=== PATIENT | male | born 1985 | race Caucasian/White ===

== ENCOUNTER 2020-05-20 09:26 | Outpatient (REF) | payer OTHER, SELFPAY ==
[2020-05-20 14:23] LABS: SARS COV2 PCR INHOUSE NEGATIVE (Negative)
== END 2020-05-20 09:27 | disposition home or self-care (01) ==
LOC: HO.LAB 09:26
PROVIDERS: Visit Provider Internal Medicine
DX: Z20.822 Contact with and (suspected) exposure to COVID-19 (principal)
CPT/HCPCS: C9803; U0003

== ENCOUNTER 2020-12-31 11:50 | Emergency (ER) | payer OTHER, BC, SELFPAY ==
--- NOTE | ~2020-12-31 | XR_ITS ---
EXAMINATION: XR CHEST CLINICAL INFORMATION: Fever. Bilateral leg pain for 5 days. COMPARISON: None TECHNIQUE: 2 views of the chest were obtained. FINDINGS: Cardiac silhouette is normal in size. The lungs are well aerated. There is no lobar consolidation. No pleural effusion or pneumothorax. No acute osseous abnormality. XR/XR chest 2V IMPRESSION: No acute pulmonary pathology.
[2020-12-31 12:00] VITALS: BP 116/82; PULSE 110; RESP 18; TEMP 36.5; O2SAT 98; BMI 23.6
--- NOTE | 2020-12-31 13:21 | ED.GENADULT ---
HPI - General Adult General Chief complaint: General Medical Stated complaint: body aches/headache Time Seen by Provider: 12/31/20 12:43 Source: patient Mode of arrival: ambulatory Limitations: no limitations History of Present Illness HPI narrative: 35-year-old male previously healthy here with complaints of feeling unwell since Saturday. Patient tells me that he started to have headache, generalized body aches Saturday. Saturday night had a temperature of 101.6 degrees. Also complaining of a cough, sore throat, joint pain and swelling. No rash, neck pain or stiffness, vomiting, diarrhea, abdominal pain, chest pain or shortness of breath. He did have a fever Saturday through but has not had a fever since. He had 2-COVID test outpatient. Spoke to his primary care doctor yesterday and had outpatient labs done. Patient tells me that he had Lyme testing done yesterday which was negative in addition to some other lab work. No recent travel or sick contact. Receive moderna x2. Sexually active with 1 partner. No concern for STD exposure. No testicular pain, urinary symptoms or penile discharge. Tested negative for HIV in 2016. No history of tick bites but is quite active an outdoors a lot. Related Data Previous Rx's Medication Instructions Recorded doxycycline monohydrate 100 mg 100 mg PO BID #14 cap 12/31/20 capsule Allergies Allergy/AdvReac Type Severity Reaction Status Date / Time No Known Allergies Allergy Unverified 11/05/19 18:10 Review of Systems Review of Systems: Yes all other systems are reviewed and are negative Constitutional: Constitutional: Reports no additional constitutional complaints, Reports body ache(s), Denies chills, Reports fever(s), Reports headache(s) and Denies weakness Eyes: Eyes: Reports no additional eye complaints and Denies change in vision ENT: Reports system reviewed and no additional complaints, except as documented, Denies dizziness, Reports headache(s), Denies nasal congestion, Denies nasal discharge, Denies neck pain and Reports sore throat Cardiovascular: Cardiovascular: Reports no additional cardiovascular complaints, Denies chest pain, Denies leg edema and Denies dyspnea Respiratory: Respiratory: Reports no additional respiratory complaints, Reports cough and Denies dyspnea Gastrointestinal: Gastrointestinal: Reports no additional gastrointestinal complaints, Denies abdominal pain, Denies diarrhea, Denies nausea and Denies vomiting Genitourinary: Genitourinary: Denies urinary incontinence Musculoskeletal: Musculoskeletal: Reports no additional musculoskeletal complaints, Denies back pain, Reports arthralgias, Reports joint swelling, Denies neck pain, Denies numbness and Denies tingling Integumentary/Breasts: Skin/Breast: Reports system reviewed and no additional complaints, except as docu and Denies rash Neurologic: Reports system reviewed and no additional complaints, except as documented, Denies Abnormal speech present, Denies dizziness, Reports headache(s), Denies numbness, Denies tingling and Denies weakness [facility] Past Medical History Attestation statement: The following information was validated with the patient. Source: old records reviewed and nursing notes reviewed Social History Social History Alcohol intake: never Smoked in Last 30 Days: No Use of substances other than those prescribed or required for medical reasons: No Advance Directives: No Advance Directives Information Provided: Yes Physical Exam Vital Signs: Vital Signs: Last Vital Signs Temp 97.7 F 12/31/20 12:00 Pulse 110 H 12/31/20 12:00 Resp 18 12/31/20 12:00 BP 116/82 12/31/20 12:00 Pulse Ox 98 12/31/20 12:00 Body Mass Index 23.6 Const: General: cooperative, healthy appearing, comfortable and no acute distress Orientation/consciousness: patient oriented x3 Limitations: no limitations HENMT: Head: Yes normal to inspection Ears: hearing grossly normal bilaterally and TM's normal bilaterally General nose exam: Normal external nose present Face and sinus: Yes normal facial exam Mouth: Normal oral and palatal mucosa present Throat: Yes posterior oropharynx normal, Yes tonsils normal and Yes uvula midline Eyes: General: appearance normal, both eyes and all related structures Pupils: Equal, round and reactive pupils present Neck: Neck: Yes normal visual inspection, Yes full ROM, Yes no lymphadenopathy and Yes no meningeal signs Chest: Chest palpation & inspection: normal inspection of the chest Resp: Effort & Inspection: normal respiratory effort Auscultation: clear to auscultation bilaterally Cardio: Rate: regular rate Rhythm: regular rhythm Peripheral pulses: Peripheral pulses 2+ throughout GI: Inspection: Yes normal to inspection Palpation (GI): Soft to palpation and nontender Auscultation: normal bowel sounds Back/Spine/Pelvis: Thoracic/Lumbar Spine: thoracic and lumbar spine normal to inspection Skin: General skin exam: no rashes or lesions noted Neuro: General: patient oriented x3, no meningeal signs, no focal motor deficits and normal sensation to monofilament Cranial nerves: Yes Equal, round and reactive pupils present Cognition (Neuro): normal cognition Speech: No Abnormal speech present Gait exam (Neuro): Normal gait present Motor exam (neuro): 5/5 motor strength present throughout Extrem: General: Yes normal to inspection, Yes no pedal edema and Yes no calf tenderness Course Course Course Narrative: 35-year-old male here with complaints of headache, joint pain and swelling, fever up to 101.6, mild sore throat and cough since Saturday evening. Tested twice negative for COVID. Had outpatient labs including Lyme testing yesterday and negative. Continued symptoms. Feels like his lower extremities are very sore and painful making ambulation difficult at times. Will check labs, chest x-ray, UA, COVID screen 1530-labs are unremarkable with the exception of the lymphocytopenia. Chest x-ray, UA and COVID screen are negative. Consider viral cause. Also consider tick-borne illness with myalgias, headache, joint pain and swelling with fever and some lymphocytopenia on the differential. Therefore as tick-borne studies are pending will treat with course of doxycycline for 7 days. Reviewed worrisome signs and symptoms and when to return to the emergency department. Comfortable discharge home. Medical Decision Making Medical Records Medical records reviewed: Yes I reviewed the patient's medical records. Lab Data Lab results reviewed: Yes I reviewed the patient's lab results. Result diagrams: 12/31/20 13:32 12/31/20 13:32 Labs: Lab Results 12/31/20 12/31/20 12/31/20 Range/Units 13:32 13:32 13:32 WBC 9.2 (4.8-10.8) X10*3/uL RBC 3.91 L (4.60-5.80) X10*6/uL Hgb 11.5 L (14.0-18.0) g/dl Hct 35.6 L (42.0-52.0) % MCV 91.0 (80.0-98.0) fL MCH 29.4 (27.0-33.0) pg MCHC 32.3 (31.0-36.0) g/dl RDW 12.2 (11.0-16.0) % Plt Count 200 (160-400) X10*3/uL MPV 9.7 (9.4-12.4) fL Immature Gran % (Auto) 0.2 (0.0-0.4) % Neut % (Auto) 77.5 H (45-73) % Lymph % (Auto) 9.2 L (20-40) % [place] % (Auto) 11.8 H (2-11) % Eos % (Auto) 1.0 (0-4) % Baso % (Auto) 0.3 (0-2) % Lymph # (Auto) 0.8 L (1.2-4.9) X10*3/uL [place] # (Auto) 1.1 (0.1-1.2) X10*3/uL Eos # (Auto) 0.1 (0.0-0.4) X10*3/uL Baso # (Auto) 0.0 (0.0-0.2) X10*3/uL Abs Immat Gran (auto) 0.02 (0.00-0.03) X10*3/uL Absolute Neuts (auto) 7.1 (2.0-8.3) x10*3/uL Absolute Nucleated RBC 0.000 (0.0-0.012) X10*3/uL Nucleated RBC % (auto) 0.0 (0.0-0.2) /100WBC Sodium 143 (135-145) mmol/L Potassium 4.1 (3.3-5.1) mmol/L Chloride 108 (96-108) mmol/L Carbon Dioxide 27 (22-29) mmol/L Anion Gap 12 (12-20) BUN 13 (9-16) mg/dL Creatinine 0.82 (0.5-1.4) mg/dL Estim Creat Clear Calc 128.1 Estimated GFR > 60 Random Glucose 102 (60-115) mg/dL Lactic Acid 0.8 (0.5-2.0) mmol/L Calcium 8.8 (8.4-10.2) mg/dL Magnesium 1.8 (1.6-2.6) mg/dL Total Bilirubin 0.3 (0.0-1.0) mg/dL Direct Bilirubin 0.2 (0.0-0.5) mg/dL AST 13 (5-37) U/L ALT 12 (0-40) U/L Alkaline Phosphatase 49 (39-117) U/L Total Creatine Kinase 57 (38-174) U/L Total Protein 6.8 (6.5-8.0) g/dL Albumin 3.9 (3.5-5.0) g/dL Urine Color Urine Appearance Urine pH (5.0-8.0) Ur Specific [place] (1.005-1.025) Urine Protein (NEG-TRACE) MG/DL Urine Glucose (UA) (NEG) MG/DL Urine Ketones (NEG) MG/DL Urine Blood (NEG) Urine Nitrite (NEG) Ur Leukocyte Esterase (NEG) Influenza Type A (PCR) Influenza Type B (PCR) RSV RNA Qual (PCR) SARS-CoV-2 RNA (RT-PCR) 12/31/20 12/31/20 12/31/20 Range/Units 13:32 13:32 14:38 WBC (4.8-10.8) X10*3/uL RBC (4.60-5.80) X10*6/uL Hgb (14.0-18.0) g/dl Hct (42.0-52.0) % MCV (80.0-98.0) fL MCH (27.0-33.0) pg MCHC (31.0-36.0) g/dl RDW (11.0-16.0) % Plt Count (160-400) X10*3/uL MPV (9.4-12.4) fL Immature Gran % (Auto) (0.0-0.4) % Neut % (Auto) (45-73) % Lymph % (Auto) (20-40) % [place] % (Auto) (2-11) % Eos % (Auto) (0-4) % Baso % (Auto) (0-2) % Lymph # (Auto) (1.2-4.9) X10*3/uL [place] # (Auto) (0.1-1.2) X10*3/uL Eos # (Auto) (0.0-0.4) X10*3/uL Baso # (Auto) (0.0-0.2) X10*3/uL Abs Immat Gran (auto) (0.00-0.03) X10*3/uL Absolute Neuts (auto) (2.0-8.3) x10*3/uL Absolute Nucleated RBC (0.0-0.012) X10*3/uL Nucleated RBC % (auto) (0.0-0.2) /100WBC Sodium (135-145) mmol/L Potassium (3.3-5.1) mmol/L Chloride (96-108) mmol/L Carbon Dioxide (22-29) mmol/L Anion Gap (12-20) BUN (9-16) mg/dL Creatinine (0.5-1.4) mg/dL Estim Creat Clear Calc Estimated GFR Random Glucose (60-115) mg/dL Lactic Acid (0.5-2.0) mmol/L Calcium (8.4-10.2) mg/dL Magnesium (1.6-2.6) mg/dL Total Bilirubin (0.0-1.0) mg/dL Direct Bilirubin (0.0-0.5) mg/dL AST (5-37) U/L ALT (0-40) U/L Alkaline Phosphatase (39-117) U/L Total Creatine Kinase (38-174) U/L Total Protein (6.5-8.0) g/dL Albumin (3.5-5.0) g/dL Urine Color YELLOW Urine Appearance CLEAR Urine pH 6.5 (5.0-8.0) Ur Specific [place] 1.025 (1.005-1.025) Urine Protein TRACE (NEG-TRACE) MG/DL Urine Glucose (UA) NEG (NEG) MG/DL Urine Ketones 5 (NEG) MG/DL Urine Blood NEG (NEG) Urine Nitrite NEG (NEG) Ur Leukocyte Esterase NEG (NEG) Influenza Type A (PCR) Cancelled NEGATIVE Influenza Type B (PCR) Cancelled NEGATIVE RSV RNA Qual (PCR) Cancelled NEGATIVE SARS-CoV-2 RNA (RT-PCR) Cancelled NEGATIVE Imaging Data Chest x-ray: Attestation: I personally reviewed and interpreted this imaging study as follows: Radiologist's impression: EXAMINATION: XR CHEST CLINICAL INFORMATION: Fever. Bilateral leg pain for 5 days. COMPARISON: None TECHNIQUE: 2 views of the chest were obtained. FINDINGS: Cardiac silhouette is normal in size. The lungs are well aerated. There is no lobar consolidation. No pleural effusion or pneumothorax. No acute osseous abnormality. XR/XR chest 2V IMPRESSION: No acute pulmonary pathology. Discharge Plan Discharge Clinical Impression: Febrile illness Patient Disposition: Home, Self-Care Instructions: Fever in Adults (ED) Additional Instructions: Your lab work all looked normal with the exception of your labs for tick-borne illnesses. These do take about 5-7 days to come back. We will call you if you require additional treatment. We are treating you prophylactically for tick-borne illnesses with 7 days of antibiotics. Continue to alternate Motrin and Tylenol Increase fluids, rest Follow-up with your primary care doctor for persistent symptoms Return to the emergency department for worsening symptoms Prescriptions: New doxycycline monohydrate 100 mg capsule 100 mg PO BID Qty: 14 RF: 0 Referrals: Pat Silva MD [Primary Care Provider] - 2 days Stand Alone Forms: Work/School Release Interventions: ED Discharge Assessment Last Done: 12/31/20 15:17 Discharge Date/Time: 12/31/20 15:17
[2020-12-31 13:39] LABS: MANUAL DIFF FLAG NO
[2020-12-31 13:41] LABS: Basophils Percent Auto 0.3 % (0-2); Eosinophils Absolute Auto 0.1 X10*3/uL (0.0-0.4); Hematocrit 35.6 % (42.0-52.0); Hemoglobin 11.5 g/dl (14.0-18.0); Imm Gran Abs Auto 0.02 X10*3/uL (0.00-0.03); Imm Gran Pct Auto 0.2 % (0.0-0.4); Lymphocytes Absolute Auto 0.8 X10*3/uL (1.2-4.9); Lymphocytes Percent Auto 9.2 % (20-40); Mean Corpuscular HGB Conc 32.3 g/dl (31.0-36.0); Mean Corpuscular Hemoglobin 29.4 pg (27.0-33.0); Mean Platelet Volume 9.7 fL (9.4-12.4); Monocytes Absolute Auto 1.1 X10*3/uL (0.1-1.2); Monocytes Percent Auto 11.8 % (2-11); Neutrophils Absolute Auto 7.1 x10*3/uL (2.0-8.3); Neutrophils Percent Auto 77.5 % (45-73); Platelet Count 200 X10*3/uL (160-400); Red Blood Count 3.91 X10*6/uL (4.60-5.80); Red Cell Distribution Width 12.2 % (11.0-16.0); White Blood Count 9.2 X10*3/uL (4.8-10.8)
[2020-12-31 13:53] LABS: Lactic Acid 0.8 mmol/L (0.5-2.0)
[2020-12-31 14:00] LABS: Alanine Aminotransferase 12 U/L (0-40); Albumin Level 3.9 g/dL (3.5-5.0); Alkaline Phosphatase 49 U/L (39-117); Aspartate Amino Transferase 13 U/L (5-37); Bilirubin Direct 0.2 mg/dL (0.0-0.5); Bilirubin Total 0.3 mg/dL (0.0-1.0); Blood Urea Nitrogen 13 mg/dL (9-16); Calcium 8.8 mg/dL (8.4-10.2); Creatinine Clr Calc Pharmacy 128.1; Estimated Glomerular Filt Rate > 60; Glucose Random 102 mg/dL (60-115); Magnesium 1.8 mg/dL (1.6-2.6); Total Protein 6.8 g/dL (6.5-8.0)
[2020-12-31 14:11] LABS: Anion Gap 12 (12-20); Carbon Dioxide 27 mmol/L (22-29); Chloride 108 mmol/L (96-108); Potassium 4.1 mmol/L (3.3-5.1); Sodium 143 mmol/L (135-145)
[2020-12-31 14:39] LABS: Influenza A PCR NEGATIVE (Negative); Influenza B PCR NEGATIVE (Negative); Resp Syncy Virus RNA Qual PCR NEGATIVE (Negative); SARS COV2 PCR INHOUSE NEGATIVE (Negative)
[2020-12-31 14:53] LABS: Appearance Urine CLEAR; Color Urine YELLOW; Glucose Urine UA NEG (NEG); Leukocyte Esterase Urine NEG (NEG); Nitrite Urine NEG (NEG); PH 6.5 (5.0-8.0); Specific Gravity - Urine 1.025 (1.005-1.025); Urine Blood NEG (NEG); Urine Ketones 5 MG/DL (NEG); Urine Protein TRACE MG/DL (NEG-TRACE)
[2021-01-02 13:37] LABS: Lyme Abs Screen <0.90 index
[2021-01-05 04:21] LABS: A. Phagocytophilum Ab IgG <1:64 (<1:64); A. Phagocytophilum Ab IgM <1:20 (<1:20); E. Chaffeensis Ab IgG <1:64 (<1:64); E. Chaffeensis Ab IgM <1:20 (<1:20)
[2021-01-05 11:27] LABS: Babesia IgG <1:64 titer (<1:64); Babesia IgM <1:20 titer (<1:20)
== END 2020-12-31 15:17 | disposition home or self-care (01) ==
PROVIDERS: Nurse Practitioner Family; Emergency Provider Emergency Medicine Emergency Medical Services; PCP Internal Medicine
DX: M79.10 Myalgia, unspecified site (principal); R51.9 Headache, unspecified; Z79.899 Other long term (current) drug therapy; Z20.822 Contact with and (suspected) exposure to COVID-19
CPT/HCPCS: 0241U; 36415; 71046; 80048; 80076; 81003; 82550; 83605; 83735; 85025; 86617; 86618; 86666; 86753; 87040; 99283; 99284

== ENCOUNTER 2020-12-31 21:45 | Emergency (ER) | payer OTHER, SELFPAY ==
--- NOTE | 2020-12-31 | ECG_ITS ---
Test Reason : CHEST PAIN Blood Pressure : / mmHG Vent. Rate : 110 BPM Atrial Rate : 110 BPM P-R Int : 128 ms QRS Dur : 090 ms QT Int : 288 ms P-R-T Axes : 042 071 048 degrees QTc Int : 389 ms Sinus tachycardia Otherwise normal ECG No previous ECGs available Referred By: Generic ED Physician Electronically Signed By:ERIKA LIVE MD
[2020-12-31 21:49] VITALS: BP 133/88; PULSE 130; RESP 18; TEMP 38.3; O2SAT 99; BMI 23.6
--- NOTE | 2020-12-31 22:20 | ED.GENADULT ---
HPI - General Adult General Chief complaint: General Medical Stated complaint: Fever/Headache Time Seen by Provider: 12/31/20 22:20 Source: patient Mode of arrival: ambulatory Limitations: no limitations History of Present Illness HPI narrative: Patient 35 years old with no significant past medical history been having headache body aches ankle joint pain and fever ranging from 101-140 degrees for last 6 days also had some slight dry cough no neck pain or stiffness no vomiting or diarrhea was seen by his PCP yesterday workup was negative including Lyme titer had 2 times COVID testing as outpatient were negative patient was seen earlier today her workup was negative patient was empirically started on doxycycline for possible tick-borne disease although pt never had any tick bite no rash noticed patient took doxycycline now not feeling better still has a fever and more headache Related Data Previous Rx's Medication Instructions Recorded doxycycline monohydrate 100 mg 100 mg PO BID #14 cap 12/31/20 capsule Allergies Allergy/AdvReac Type Severity Reaction Status Date / Time No Known Allergies Allergy Unverified 11/05/19 18:10 Review of Systems Review of Systems: Constitutional : No Weight loss, + Fever, No Chills ENT/Mouth : No sore throat, No Rhinorrhea Eyes: No Eye Pain, No Swelling Cardiovascular : No Chest Pain, no palpitations Respiratory : No Cough, No Sputum, no shortness of breath Gastrointestinal : no Nausea, No Vomiting, No Diarrhea, No abdominal Pain, no black stools Genitourinary : No Dysuria, No Urinary Frequency Musculoskeletal : +joint pain, +Myalgias, + Joint Swelling (ankle) Skin : No Skin Lesions, No rash Neuro : No Weakness, No Numbness, No Dizziness, No Headache Psych : No Anxiety/Panic, No Depression Heme/Lymph: No Bruising, No Lymphadenopathy Endocrine : No Polyuria, No Polydipsia All other systems reviewed and are negative [facility] Social History Social History Alcohol intake: unknown Patient Tobacco Use Status: Tobacco use Unknown Use of substances other than those prescribed or required for medical reasons: Unknown Advance Directives: No Advance Directives Information Provided: No Physical Exam Vital Signs: Vital Signs: Last Vital Signs Temp 99 F 01/01/21 00:40 Pulse 81 01/01/21 00:40 Resp 14 01/01/21 00:40 BP 103/61 01/01/21 00:40 Pulse Ox 97 01/01/21 00:40 Body Mass Index 23.6 Appearance: Alert. Oriented X3. No acute distress. Eyes: PERRLA, No Nystagmus ENT: Pharynx normal. Oral Mucosa moist Neck: Normal inspection. Neck supple. CVS: Normal heart rate and rhythm. Pulses normal. Respiratory: No respiratory distress. Equal air entry bilateral, no wheezing/rales/rhonchi Abdomen: Soft and nontender. Bowel sounds are present, no mass palpable, no CVA tenderness Skin: Skin warm and dry. Normal skin color. Normal skin turgor. Extremities: No lower extremity edema. No calf tenderness, slight swelling of bilateral ankle joint and tenderness Neuro: Oriented X 3. No motor deficit. No sensory deficit.No cerebellar signs , cranial nerves II-XII intact Course Reevaluation(s) Reevaluation #1: Patient with fever headache of unknown origin CSF negative for aseptic meningitis a slightly elevated CRP and sed rate likely tick-borne disease causing the fever Ehrlichia Anaplasma antibody panel is pending advised patient to continue doxycycline and follow with PCP Time: 01:51 Procedures Lumbar Puncture Time Out Performed: Yes Patient Position: upright Skin Prep: Povidone-Iodine 1% Local Anesthetic: lidocaine 2% Amount of anesthesia used (mL): 2 Spinal Needle Gauge: 22G Interspace Used: L4-L5 Opening Pressure (cmH20): 27 Fluid Initially Obtained: clear Complications: none Medical Decision Making MDM Narrative Medical decision making narrative: Etiology of fever and headaches in joint pain is not very clear workup with progress will check for rheumatoid factor CRP sed rate will do spinal tap to rule out viral meningitis as a cause of headache Lab Data Lab results reviewed: Yes I reviewed the patient's lab results. Labs: Lab Results 12/31/20 12/31/20 01/01/21 Range/Units 23:45 23:45 00:34 ESR 34 H (0-15) MM/HR C-Reactive Protein 4.35 H (< or = 0.50) mg/dL CSF Tube Number 2 CSF Appearance (b) Clear, Colorless CSF Glucose 78 mg/dL CSF Total Protein 29.9 (15-45) mg/dL Rheumatoid Factor < 15.0 (<15.0) IU/mL Discharge Plan Discharge Clinical Impression: Fever Qualifiers: Fever type: unspecified Qualified Code(s): R50.9 - Fever, unspecified Patient Disposition: Home, Self-Care Instructions: Fever in Adults (ED) Additional Instructions: Likely have tick-borne disease unspecified Continue doxycycline and follow with PCP Prescriptions: No Action doxycycline monohydrate 100 mg capsule 100 mg PO BID Qty: 14 RF: 0
[2020-12-31] MEDS: Ketorolac Tromethamine 15 MG/ML VIAL 30 MG IVPUSH (23:47)
[2020-12-31] MEDS: 0.9 % Sodium Chloride 1,000 ML 999 ML IVCONT (23:48)
[2021-01-01 00:27] LABS: C Reactive Protein 4.35 mg/dL (< or = 0.50); Rheumatoid Factor < 15.0 IU/mL (<15.0)
[2021-01-01 00:37] LABS: Erythrocyte Sedimentation Rate 34 MM/HR (0-15)
[2021-01-01 00:40] VITALS: BP 103/61; PULSE 81; RESP 14; TEMP 37.2; O2SAT 97
[2021-01-01 01:00] LABS: CSF Appearance Clear, Colorless; CSF Tube # 2
[2021-01-01 01:23] LABS: Glucose CSF 78 mg/dL; Total Protein CSF 29.9 mg/dL (15-45)
[2021-01-01 08:50] LABS: CSF Tube # 4; CSF Volume 1.8 ML; Color CSF COLORLESS; Red Blood Cell CSF 12 MM*3; White Blood Cell CSF 5 MM*3
[2021-01-01 08:51] LABS: CSF Monos 10 %; Neutrophils CSF 90 %
[2021-01-01 08:58] LABS: Appearance CSF CLEAR
[2021-01-02 16:51] LABS: Anti Nuclear Antibody Screen NEGATIVE (NEGATIVE)
[2021-01-02 18:05] LABS: Lyme (B. burgdorferi) PCR NOT DETECTED (NOT DETECTED)
[2021-01-03 22:57] LABS: HSV 1 DNA, CSF Not Detected (Not Detected); HSV 2 DNA, CSF Not Detected (Not Detected); Specimen Source CSF
== END 2021-01-01 02:28 | disposition home or self-care (01) ==
PROVIDERS: Emergency Provider Internal Medicine; PCP Internal Medicine
DX: R50.9 Fever, unspecified (principal); R51.9 Headache, unspecified; R07.9 Chest pain, unspecified; M79.10 Myalgia, unspecified site; Z20.822 Contact with and (suspected) exposure to COVID-19; Z79.899 Other long term (current) drug therapy
CPT/HCPCS: 36415; 62270; 82945; 84157; 85652; 86038; 86039; 86140; 86431; 87015; 87070; 87205; 87476; 87529; 89051; 93005; 96361; 96374; 99284; 99285; J1885

== ENCOUNTER 2021-01-03 17:44 | Emergency (ER) | payer OTHER, SELFPAY ==
[2021-01-03 18:14] VITALS: BP 139/97; PULSE 94; RESP 18; TEMP 36.3; O2SAT 98; BMI 23.6
--- NOTE | 2021-01-03 19:56 | ED.GENADULT ---
HPI - General Adult General Chief complaint: General Medical <Braulio Lezama MD - Last Filed: 01/03/21 21:14> Stated complaint: headache, fever ankle pain <Braulio Lezama MD - Last Filed: 01/03/21 21:14> Time Seen by Provider: 01/03/21 19:32 <Braulio Lezama MD - Last Filed: 01/03/21 21:14> Source: patient and old records reviewed <Braulio Lezama MD - Last Filed: 01/03/21 21:14> Limitations: no limitations <Braulio Lezama MD - Last Filed: 01/03/21 21:14> History of Present Illness HPI narrative: Patient presents with approximately 10 days worth of fevers chills headache, body aches. He has also been having joint pain and swelling. He has no history of similar issues. No recent travels No sick contacts No cough or respiratory symptoms. He was seen here twice for the symptoms because they were getting worse and had a temperature of up to 104? F. Get a full workup including lumbar puncture which was unrevealing so far. He had a total of 5 white cells with so far no growth. Recent Lyme titers were negative. 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 His symptoms continue and his T-max yesterday was 102? F. He saw his PCP today who recommended to come to the emergency department with concerns for dehydration and continued symptoms. <Braulio Lezama MD - Last Filed: 01/03/21 21:14> Related Data Home medications: Previous Rx's Medication Instructions Recorded doxycycline monohydrate 100 mg 100 mg PO BID #14 cap 12/31/20 capsule [id number]-umacdpuwqwuot-dafblgcl 1 cap PO TID PRN #5 cap 01/04/21 50 mg-300 mg-40 mg capsule (Fioricet) prednisone 20 mg tablet 40 mg PO DAILY 4 Days #8 tab 01/04/21 <Braulio Lezama MD - Last Filed: 01/03/21 21:14> Allergies/adverse reactions: Allergies Allergy/AdvReac Type Severity Reaction Status Date / Time No Known Allergies Allergy Unverified 11/05/19 18:10 <Braulio Lezama MD - Last Filed: 01/03/21 21:14> Review of Systems Constitutional: Comments: Patient with ongoing fevers chills and body aches <Braulio Lezama MD - Last Filed: 01/03/21 21:14> ENT: Comments: No rhinorrhea <Braulio Lezama MD - Last Filed: 01/03/21 21:14> Cardiovascular: Comments: No chest pain <Braulio Lezama MD - Last Filed: 01/03/21 21:14> Respiratory: Comments: No cough, sputum, shortness of breath <Braulio Lezama MD - Last Filed: 01/03/21 21:14> Gastrointestinal: Comments: No nausea vomiting or diarrhea. <Braulio Lezama MD - Last Filed: 01/03/21 21:14> Musculoskeletal: Comments: Diffuse arthralgias with joint swelling especially in his left ankle more so than right ankle. <Braulio Lezama MD - Last Filed: 01/03/21 21:14> Integumentary/Breasts: Comments: No rash at any point <Braulio Lezama MD - Last Filed: 01/03/21 21:14> Neurologic: Comments: Headache without focal weakness <Braulio Lezama MD - Last Filed: 01/03/21 21:14> [facility] Social History Social History: Social History Alcohol intake: unknown Patient Tobacco Use Status: Tobacco use Unknown Advance Directives: No Advance Directives Information Provided: Yes <Braulio Lezama MD - Last Filed: 01/03/21 21:14> Physical Exam Vital Signs: Vital Signs: Last Vital Signs Temp 98.2 F 01/03/21 23:41 Pulse 100 01/03/21 23:41 Resp 16 01/03/21 23:41 BP 129/80 01/03/21 23:41 Pulse Ox 96 01/03/21 23:41 Body Mass Index 23.6 <Braulio Lezama MD - Last Filed: 01/03/21 21:14> Vital Signs: Last Vital Signs Temp 98.2 F 01/03/21 23:41 Pulse 100 01/03/21 23:41 Resp 16 01/03/21 23:41 BP 129/80 01/03/21 23:41 Pulse Ox 96 01/03/21 23:41 Body Mass Index 23.6 <Fawn Elena MD - Last Filed: 01/04/21 01:01> Const: Other: Awake alert. Appears mildly uncomfortable. Afebrile with stable vital signs <Braulio Lezama MD - Last Filed: 01/03/21 21:14> HENMT: Other: Normocephalic atraumatic <Braulio Lezama MD - Last Filed: 01/03/21 21:14> Neck: Other: Full range of motion without meningismus <Braulio Lezama MD - Last Filed: 01/03/21 21:14> Resp: Other: Clear and equal bilaterally without wheezes rales or rhonchi <Braulio Lezama MD - Last Filed: 01/03/21 21:14> Cardio: Other: Regular rate and rhythm without murmurs rubs or gallops <Braulio Lezama MD - Last Filed: 01/03/21 21:14> GI: Other: Soft nontender nondistended no splenomegaly <Braulio Lezama MD - Last Filed: 01/03/21 21:14> Skin: Other: Warm pink and dry without rash <Braulio Lezama MD - Last Filed: 01/03/21 21:14> Neuro: Other: Nonfocal neuro exam grossly <Braulio Lezama MD - Last Filed: 01/03/21 21:14> Extrem: Other: Left ankle is swollen, bilateral wrist discomfort on range of motion but no obvious effusions <Braulio Lezama MD - Last Filed: 01/03/21 21:14> Course Course Course Narrative: Patient with febrile illness of unclear etiology at this point. Will expand testing with Babesiosis/malarial smear and IgG IgM antibodies for West Nile and Eastern equine encephalitis for potential mosquito borne illness. He is currently on doxycycline and due for dose at 8:00 p.m.. I will order this here. Review of old records shows that his CSF test for Erlichiosis are still pending. Recent Lyme titers are negative Will treat with IV fluids and IV Toradol and IV Solu-Medrol and re-evaluate. 9:11 p.m.. Patient is feeling somewhat improved already after medication and approximately 200 cc of normal saline. Lab work is reassuring with the minimal leukocytosis. CRP is still elevated. Remainder of labs are unremarkable. He will be stable for discharge home <Braulio Lezama MD - Last Filed: 01/03/21 21:14> Reevaluation(s) Reevaluation #1: I re-evaluated the patient initially and his pain had increased to 7/10 and discuss this with the patient and decided to trial him with a 1 time dose of Fioricet. Afterwards, patient states that his pain level decreased to 3/10 and the pain did not worsen with standing up as it had in the past. He was then discharged with a short course of steroids as well as a prescription for Fioricet for breakthrough pain. <Fawn Elena MD - Last Filed: 01/04/21 01:01> Time: 01:00 <Fawn Elena MD - Last Filed: 01/04/21 01:01> Medical Decision Making Lab Data Result diagrams: : 01/03/21 20:27 01/03/21 20:27 <Braulio Lezama MD - Last Filed: 01/03/21 21:14> Labs: Lab Results 01/03/21 01/03/21 01/03/21 Range/Units 20:27 20:27 20:27 WBC 12.0 H (4.8-10.8) X10*3/uL RBC 3.79 L (4.60-5.80) X10*6/uL Hgb 11.2 L (14.0-18.0) g/dl Hct 34.5 L (42.0-52.0) % MCV 91.0 (80.0-98.0) fL MCH 29.6 (27.0-33.0) pg MCHC 32.5 (31.0-36.0) g/dl RDW 11.9 (11.0-16.0) % Plt Count 236 (160-400) X10*3/uL MPV 9.6 (9.4-12.4) fL Immature Gran % (Auto) 0.3 (0.0-0.4) % Neut % (Auto) 84.1 H (45-73) % Lymph % (Auto) 7.2 L (20-40) % [place] % (Auto) 7.7 (2-11) % Eos % (Auto) 0.4 (0-4) % Baso % (Auto) 0.3 (0-2) % Lymph # (Auto) 0.9 L (1.2-4.9) X10*3/uL [place] # (Auto) 0.9 (0.1-1.2) X10*3/uL Eos # (Auto) 0.1 (0.0-0.4) X10*3/uL Baso # (Auto) 0.0 (0.0-0.2) X10*3/uL Abs Immat Gran (auto) 0.04 H (0.00-0.03) X10*3/uL Absolute Neuts (auto) 10.1 H (2.0-8.3) x10*3/uL Absolute Nucleated RBC 0.000 (0.0-0.012) X10*3/uL Nucleated RBC % (auto) 0.0 (0.0-0.2) /100WBC Sodium 141 (135-145) mmol/L Potassium 3.8 (3.3-5.1) mmol/L Chloride 104 (96-108) mmol/L Carbon Dioxide 28 (22-29) mmol/L Anion Gap 13 (12-20) BUN 10 (9-16) mg/dL Creatinine 0.72 (0.5-1.4) mg/dL Estim Creat Clear Calc 145.9 Estimated GFR > 60 Random Glucose 106 (60-115) mg/dL Lactic Acid 0.7 (0.5-2.0) mmol/L Calcium 8.9 (8.4-10.2) mg/dL Total Bilirubin 0.3 (0.0-1.0) mg/dL AST 11 (5-37) U/L ALT 11 (0-40) U/L Alkaline Phosphatase 47 (39-117) U/L C-Reactive Protein 3.64 H (< or = 0.50) mg/dL Total Protein 6.9 (6.5-8.0) g/dL Albumin 4.0 (3.5-5.0) g/dL TSH (0.32-4.0) uIU/mL 01/03/21 Range/Units 20:27 WBC (4.8-10.8) X10*3/uL RBC (4.60-5.80) X10*6/uL Hgb (14.0-18.0) g/dl Hct (42.0-52.0) % MCV (80.0-98.0) fL MCH (27.0-33.0) pg MCHC (31.0-36.0) g/dl RDW (11.0-16.0) % Plt Count (160-400) X10*3/uL MPV (9.4-12.4) fL Immature Gran % (Auto) (0.0-0.4) % Neut % (Auto) (45-73) % Lymph % (Auto) (20-40) % [place] % (Auto) (2-11) % Eos % (Auto) (0-4) % Baso % (Auto) (0-2) % Lymph # (Auto) (1.2-4.9) X10*3/uL [place] # (Auto) (0.1-1.2) X10*3/uL Eos # (Auto) (0.0-0.4) X10*3/uL Baso # (Auto) (0.0-0.2) X10*3/uL Abs Immat Gran (auto) (0.00-0.03) X10*3/uL Absolute Neuts (auto) (2.0-8.3) x10*3/uL Absolute Nucleated RBC (0.0-0.012) X10*3/uL Nucleated RBC % (auto) (0.0-0.2) /100WBC Sodium (135-145) mmol/L Potassium (3.3-5.1) mmol/L Chloride (96-108) mmol/L Carbon Dioxide (22-29) mmol/L Anion Gap (12-20) BUN (9-16) mg/dL Creatinine (0.5-1.4) mg/dL Estim Creat Clear Calc Estimated GFR Random Glucose (60-115) mg/dL Lactic Acid (0.5-2.0) mmol/L Calcium (8.4-10.2) mg/dL Total Bilirubin (0.0-1.0) mg/dL AST (5-37) U/L ALT (0-40) U/L Alkaline Phosphatase (39-117) U/L C-Reactive Protein (< or = 0.50) mg/dL Total Protein (6.5-8.0) g/dL Albumin (3.5-5.0) g/dL TSH 1.31 (0.32-4.0) uIU/mL <Braulio Lezama MD - Last Filed: 01/03/21 21:14> Lab Results 01/03/21 01/03/21 01/03/21 Range/Units 20:27 20:27 20:27 WBC 12.0 H (4.8-10.8) X10*3/uL RBC 3.79 L (4.60-5.80) X10*6/uL Hgb 11.2 L (14.0-18.0) g/dl Hct 34.5 L (42.0-52.0) % MCV 91.0 (80.0-98.0) fL MCH 29.6 (27.0-33.0) pg MCHC 32.5 (31.0-36.0) g/dl RDW 11.9 (11.0-16.0) % Plt Count 236 (160-400) X10*3/uL MPV 9.6 (9.4-12.4) fL Immature Gran % (Auto) 0.3 (0.0-0.4) % Neut % (Auto) 84.1 H (45-73) % Lymph % (Auto) 7.2 L (20-40) % [place] % (Auto) 7.7 (2-11) % Eos % (Auto) 0.4 (0-4) % Baso % (Auto) 0.3 (0-2) % Lymph # (Auto) 0.9 L (1.2-4.9) X10*3/uL [place] # (Auto) 0.9 (0.1-1.2) X10*3/uL Eos # (Auto) 0.1 (0.0-0.4) X10*3/uL Baso # (Auto) 0.0 (0.0-0.2) X10*3/uL Abs Immat Gran (auto) 0.04 H (0.00-0.03) X10*3/uL Absolute Neuts (auto) 10.1 H (2.0-8.3) x10*3/uL Absolute Nucleated RBC 0.000 (0.0-0.012) X10*3/uL Nucleated RBC % (auto) 0.0 (0.0-0.2) /100WBC Sodium 141 (135-145) mmol/L Potassium 3.8 (3.3-5.1) mmol/L Chloride 104 (96-108) mmol/L Carbon Dioxide 28 (22-29) mmol/L Anion Gap 13 (12-20) BUN 10 (9-16) mg/dL Creatinine 0.72 (0.5-1.4) mg/dL Estim Creat Clear Calc 145.9 Estimated GFR > 60 Random Glucose 106 (60-115) mg/dL Lactic Acid 0.7 (0.5-2.0) mmol/L Calcium 8.9 (8.4-10.2) mg/dL Total Bilirubin 0.3 (0.0-1.0) mg/dL AST 11 (5-37) U/L ALT 11 (0-40) U/L Alkaline Phosphatase 47 (39-117) U/L C-Reactive Protein 3.64 H (< or = 0.50) mg/dL Total Protein 6.9 (6.5-8.0) g/dL Albumin 4.0 (3.5-5.0) g/dL TSH (0.32-4.0) uIU/mL 01/03/21 Range/Units 20:27 WBC (4.8-10.8) X10*3/uL RBC (4.60-5.80) X10*6/uL Hgb (14.0-18.0) g/dl Hct (42.0-52.0) % MCV (80.0-98.0) fL MCH (27.0-33.0) pg MCHC (31.0-36.0) g/dl RDW (11.0-16.0) % Plt Count (160-400) X10*3/uL MPV (9.4-12.4) fL Immature Gran % (Auto) (0.0-0.4) % Neut % (Auto) (45-73) % Lymph % (Auto) (20-40) % [place] % (Auto) (2-11) % Eos % (Auto) (0-4) % Baso % (Auto) (0-2) % Lymph # (Auto) (1.2-4.9) X10*3/uL [place] # (Auto) (0.1-1.2) X10*3/uL Eos # (Auto) (0.0-0.4) X10*3/uL Baso # (Auto) (0.0-0.2) X10*3/uL Abs Immat Gran (auto) (0.00-0.03) X10*3/uL Absolute Neuts (auto) (2.0-8.3) x10*3/uL Absolute Nucleated RBC (0.0-0.012) X10*3/uL Nucleated RBC % (auto) (0.0-0.2) /100WBC Sodium (135-145) mmol/L Potassium (3.3-5.1) mmol/L Chloride (96-108) mmol/L Carbon Dioxide (22-29) mmol/L Anion Gap (12-20) BUN (9-16) mg/dL Creatinine (0.5-1.4) mg/dL Estim Creat Clear Calc Estimated GFR Random Glucose (60-115) mg/dL Lactic Acid (0.5-2.0) mmol/L Calcium (8.4-10.2) mg/dL Total Bilirubin (0.0-1.0) mg/dL AST (5-37) U/L ALT (0-40) U/L Alkaline Phosphatase (39-117) U/L C-Reactive Protein (< or = 0.50) mg/dL Total Protein (6.5-8.0) g/dL Albumin (3.5-5.0) g/dL TSH 1.31 (0.32-4.0) uIU/mL <Fawn Elena MD - Last Filed: 01/04/21 01:01> Discharge Plan Discharge Clinical Impression: Systemic viral illness <Braulio Lezama MD - Last Filed: 01/03/21 21:14> Patient Disposition: Home, Self-Care <Braulio Lezama MD - Last Filed: 01/03/21 21:14> Instructions: Viral Syndrome (ED) <Braulio Lezama MD - Last Filed: 01/03/21 21:14> Additional Instructions: Continue current medications. I am prescribing prednisone for inflammation as well. This should help with your joint swelling. Drink plenty of liquids as discussed. Follow-up with your primary care physician. Lab work that is still pending includes lab tests from your spinal tap from her last visit as well as new blood work today for potential mosquito borne viruses. <Braulio Lezama MD - Last Filed: 01/03/21 21:14> Prescriptions: New aqwgzoqtjh-dgzmqoikpdygf-jyzk [Fioricet] 50-300-40 mg capsule 1 cap PO TID PRN (Reason: pain) Qty: 5 RF: 0 prednisone 20 mg tablet 40 mg PO DAILY 4 Days Qty: 8 RF: 0 No Action doxycycline monohydrate 100 mg capsule 100 mg PO BID Qty: 14 RF: 0 <Braulio Lezama MD - Last Filed: 01/03/21 21:14> Referrals: Pat Silva MD [Primary Care Provider] - 2 days <Braulio Lezama MD - Last Filed: 01/03/21 21:14>
[2021-01-03 20:29] VITALS: BP 127/91; PULSE 91; RESP 16; TEMP 37.2; O2SAT 100
[2021-01-03] MEDS: Ketorolac Tromethamine 15 MG/ML VIAL 30 MG IVPUSH (20:32)
[2021-01-03] MEDS: methylPREDNISolone Sod Succ 125 MG/2 ML VIAL IVPUSH (20:32)
[2021-01-03 20:33] LABS: MANUAL DIFF FLAG NO
[2021-01-03] MEDS: 0.9 % Sodium Chloride 1,000 ML 999 ML IV (20:33)
[2021-01-03 20:39] LABS: Basophils Percent Auto 0.3 % (0-2); Eosinophils Absolute Auto 0.1 X10*3/uL (0.0-0.4); Eosinophils Percent Auto 0.4 % (0-4); Hematocrit 34.5 % (42.0-52.0); Hemoglobin 11.2 g/dl (14.0-18.0); Imm Gran Abs Auto 0.04 X10*3/uL (0.00-0.03); Imm Gran Pct Auto 0.3 % (0.0-0.4); Lymphocytes Absolute Auto 0.9 X10*3/uL (1.2-4.9); Lymphocytes Percent Auto 7.2 % (20-40); Mean Corpuscular HGB Conc 32.5 g/dl (31.0-36.0); Mean Corpuscular Hemoglobin 29.6 pg (27.0-33.0); Mean Platelet Volume 9.6 fL (9.4-12.4); Monocytes Absolute Auto 0.9 X10*3/uL (0.1-1.2); Monocytes Percent Auto 7.7 % (2-11); Neutrophils Absolute Auto 10.1 x10*3/uL (2.0-8.3); Neutrophils Percent Auto 84.1 % (45-73); Platelet Count 236 X10*3/uL (160-400); Red Blood Count 3.79 X10*6/uL (4.60-5.80); Red Cell Distribution Width 11.9 % (11.0-16.0)
[2021-01-03 20:45] LABS: Lactic Acid 0.7 mmol/L (0.5-2.0)
[2021-01-03 20:50] LABS: Alanine Aminotransferase 11 U/L (0-40); Alkaline Phosphatase 47 U/L (39-117); Anion Gap 13 (12-20); Aspartate Amino Transferase 11 U/L (5-37); Bilirubin Total 0.3 mg/dL (0.0-1.0); Blood Urea Nitrogen 10 mg/dL (9-16); C Reactive Protein 3.64 mg/dL (< or = 0.50); Calcium 8.9 mg/dL (8.4-10.2); Carbon Dioxide 28 mmol/L (22-29); Chloride 104 mmol/L (96-108); Creatinine Clr Calc Pharmacy 145.9; Estimated Glomerular Filt Rate > 60; Glucose Random 106 mg/dL (60-115); Potassium 3.8 mmol/L (3.3-5.1); Sodium 141 mmol/L (135-145); Total Protein 6.9 g/dL (6.5-8.0)
[2021-01-03 21:10] LABS: TSH reflex Free T4 1.31 uIU/mL (0.32-4.0)
[2021-01-03 21:37] VITALS: BP 129/77; PULSE 95; RESP 16; TEMP 37.2; O2SAT 98
[2021-01-03 22:45] VITALS: BP 122/76; PULSE 88; RESP 16; TEMP 36.8; O2SAT 97
[2021-01-03 23:41] VITALS: BP 129/80; PULSE 100; RESP 16; TEMP 36.8; O2SAT 96
[2021-01-03] MEDS: Butalb/Acetamin/Caff 50/325/40 TABLET 1 TAB PO (23:41)
[2021-01-04 01:01] VITALS: BP 120/75; PULSE 79; RESP 15; O2SAT 97
[2021-01-04 14:40] LABS: Babesia Smear NEGATIVE (NEGATIVE)
== END 2021-01-04 01:03 | disposition home or self-care (01) ==
PROVIDERS: Emergency Medicine; Emergency Provider Student in an Organized Health Care Education/Training Program; PCP Internal Medicine
DX: B34.9 Viral infection, unspecified (principal); R50.9 Fever, unspecified; R05.9 Cough, unspecified; M25.572 Pain in left ankle and joints of left foot; M25.571 Pain in right ankle and joints of right foot; Z79.899 Other long term (current) drug therapy; Z20.822 Contact with and (suspected) exposure to COVID-19
CPT/HCPCS: 36415; 80053; 83605; 84443; 85025; 86140; 87040; 87207; 96361; 96374; 96375; 99284; J1885; J2930

== ENCOUNTER 2021-01-24 11:09 | Outpatient (REF) | payer OTHER, SELFPAY ==
[2021-01-24 12:09] LABS: MANUAL DIFF FLAG NO
[2021-01-24 12:25] LABS: Basophils Percent Auto 0.3 % (0-2); Eosinophils Absolute Auto 0.1 X10*3/uL (0.0-0.4); Eosinophils Percent Auto 1.3 % (0-4); Hematocrit 36.9 % (42.0-52.0); Hemoglobin 11.7 g/dl (14.0-18.0); Imm Gran Abs Auto 0.03 X10*3/uL (0.00-0.03); Imm Gran Pct Auto 0.3 % (0.0-0.4); Lymphocytes Absolute Auto 1.4 X10*3/uL (1.2-4.9); Lymphocytes Percent Auto 16.4 % (20-40); Mean Corpuscular HGB Conc 31.7 g/dl (31.0-36.0); Mean Corpuscular Hemoglobin 29.2 pg (27.0-33.0); Mean Platelet Volume 9.9 fL (9.4-12.4); Monocytes Absolute Auto 0.8 X10*3/uL (0.1-1.2); Monocytes Percent Auto 9.4 % (2-11); Neutrophils Absolute Auto 6.2 x10*3/uL (2.0-8.3); Neutrophils Percent Auto 72.3 % (45-73); Platelet Count 228 X10*3/uL (160-400); Red Blood Count 4.01 X10*6/uL (4.60-5.80); Red Cell Distribution Width 12.2 % (11.0-16.0); White Blood Count 8.6 X10*3/uL (4.8-10.8)
[2021-01-24 12:51] LABS: Anion Gap 11 (12-20); Blood Urea Nitrogen 11 mg/dL (9-16); Calcium 9.4 mg/dL (8.4-10.2); Carbon Dioxide 30 mmol/L (22-29); Chloride 105 mmol/L (96-108); Estimated Glomerular Filt Rate > 60; Glucose Random 91 mg/dL (60-115); Lipase 8 U/L (8-78); Sodium 142 mmol/L (135-145)
[2021-01-24 13:16] LABS: Erythrocyte Sedimentation Rate 34 MM/HR (0-15)
[2021-01-25 04:22] LABS: HIV AB/AG Nonreactive (Nonreactive); HIV Num 1 0.09 S/CO (0.00-0.99)
[2021-01-26 21:47] LABS: Immunoglobulin G Subclass 1 654 mg/dL (382-929); Immunoglobulin G Subclass 2 369 mg/dL (241-700); Immunoglobulin G Subclass 3 53 mg/dL (22-178); Immunoglobulin G Subclass 4 22.6 mg/dL (4-86); Immunoglobulin G Total 1196 mg/dL (600-1640)
[2021-01-26 23:05] LABS: Immunoglobulin A 540 mg/dL (47-310)
[2021-01-27 11:51] LABS: Transglutaminase IgA <1.0 U/mL
== END 2021-01-24 11:10 | disposition home or self-care (01) ==
LOC: HO.LAB 11:09
PROVIDERS: PCP Internal Medicine; Visit Provider Internal Medicine
DX: Z11.4 Encounter for screening for human immunodeficiency virus [HIV] (principal); R10.9 Unspecified abdominal pain
CPT/HCPCS: 36415; 80048; 82784; 83516; 83690; 85025; 85652; 87389